=== PATIENT | male | born 1970 | race American Indian/Alaskan Native ===

== ENCOUNTER 2020-08-13 08:26 | Emergency (ER) | payer MEDICAID, OTHER ==
--- NOTE | 2020-08-13 08:38 | Event Note ---
ED Screening Note ED Screening Note: SEVERE LBP P DOING YARD WORK NO B/B SYMPTOMS AMBULATORY; BUT IN PAIN ON EXAM POS TENDERNESS OVER SPINE This initial assessment/diagnostic orders/clinical plan/treatment(s) is/are subject to change based on patients health status, clinical progression and re- assessment by fellow clinical providers in the ED. Further treatment and workup at subsequent clinical providers discretion. Patient/guardian urged not to elope from the ED as their condition may be serious if not clinically assessed and managed. Initial orders include: XR
[2020-08-13 08:40] VITALS: BP 127/69
--- NOTE | 2020-08-13 09:27 | XRay Report ---
Lumbar spine radiograph, 3 views. HISTORY: Lumbar spine pain with tenderness on palpation. COMPARISON: None FINDINGS: Minimal right convex curvature, centered at L4-L5. Posterior vertebral body alignment is pr eserved. Disc spaces are preserved with small anterior marginal osteophytes at L4-L5. Mild/moderate l ower lumbar facet arthropathy. No evidence of fracture. Multiple metallic densities project throughou t the abdomen and pelvis. IMPRESSION: Mild lumbar spondylosis. No acute process. Signer Name: Cyrus Ohara MD Signed: 08/13/2020 9:22 AM Workstation Name: [id number]
--- NOTE | 2020-08-13 09:28 | Emergency Department Report ---
ED Back Pain/Injury HPI - General Chief Complaint: Back Pain/Injury Stated Complaint: BACK PAIN Time Seen by Provider: 08/13/20 08:37 Source: patient Limitations: No Limitations - History of Present Illness Initial Comments: Patient is a 49-year-old male that comes to the emergency room today after injuring his back while cutting tree limbs yesterday. He states that he thought that he freed a branch from a main limb of a tree. He pulled on that limb and realized that it was not detached and he strained his back at that time. Today he woke up and his low back was hurting worse. Patient denies any urinary symptoms. He denies any numbness/saddle anesthesia. He is urinating and stooling without difficulty. He is ambulatory to the ER. Movement makes the pain worse. Immobilization makes it better. Patient reports not taking any medications prior to arrival. He has not seen his primary care doctor. The pain is a constant aching of his lumbar area. MD Complaint: back pain -: Sudden, days(s) Similar Symptoms Previously: No Place: home Severity: moderate Consistency: constant Improves With: immobilization Worsens With: movement Context: while lifting, turning/twisting Associated Symptoms: denies other symptoms - Related Data Previous Rx's Medication Instructions Recorded Last Taken Type Cyclobenzaprine [Flexeril] 10 mg PO TID PRN #10 tablet 08/13/20 Unknown Rx Ibuprofen [Motrin] 800 mg PO Q8HR PRN #30 tablet 08/13/20 Unknown Rx predniSONE [Deltasone] 20 mg PO DAILY #5 tablet 08/13/20 Unknown Rx Allergies Allergy/AdvReac Type Severity Reaction Status Date / Time No Known Allergies Allergy Verified 08/13/20 08:36 ED Review of Systems ROS: Stated complaint: BACK PAIN Other details as noted in HPI Comment: All other systems reviewed and negative ED Past Medical Hx - Past Medical History Previous Medical History?: No - Surgical History Past Surgical History?: Yes Additional Surgical History: RIGHT LUNG - Social History Smoking Status: Never Smoker Substance Use Type: None - Medications Home Medications: Home Medications Medication Instructions Recorded Confirmed Last Taken Type Cyclobenzaprine [Flexeril] 10 mg PO TID PRN #10 tablet 08/13/20 Unknown Rx Ibuprofen [Motrin] 800 mg PO Q8HR PRN #30 tablet 08/13/20 Unknown Rx predniSONE [Deltasone] 20 mg PO DAILY #5 tablet 08/13/20 Unknown Rx ED Physical Exam - General Limitations: No Limitations General appearance: alert, in no apparent distress - Head Head exam: Present: atraumatic, normocephalic - Eye Eye exam: Present: normal appearance - ENT ENT exam: Present: mucous membranes moist - Neck Neck exam: Present: normal inspection - Respiratory Respiratory exam: Present: normal lung sounds bilaterally. Absent: respiratory distress - Cardiovascular Cardiovascular Exam: Present: regular rate, normal rhythm. Absent: systolic murmur, diastolic murmur, rubs, gallop - GI/Abdominal GI/Abdominal exam: Present: soft, normal bowel sounds - Rectal Rectal exam: Present: deferred - Extremities Exam Extremities exam: Present: normal inspection - Back Exam Back exam: Present: normal inspection - Neurological Exam Neurological exam: Present: alert, oriented X3 - Psychiatric Psychiatric exam: Present: normal affect, normal mood - Skin Skin exam: Present: warm, dry, intact, normal color. Absent: rash ED Course Vital Signs 08/13/20 08:39 Temperature 97.7 F Pulse Rate 61 Respiratory 20 Rate Blood Pressure 127/69 O2 Sat by Pulse 98 Oximetry ED Medical Decision Making - Radiology Data Radiology results: report reviewed, image reviewed - Medical Decision Making X-ray negative. Patient is ambulatory with no signs or symptoms of cauda equina Medicated in ER with some relief. Patient being discharged home with medications and Follow-up. He verbalizes understanding of discharge plan of care. Vital Signs 08/13/20 08:39 Temperature 97.7 F Pulse Rate 61 Respiratory 20 Rate Blood Pressure 127/69 O2 Sat by Pulse 98 Oximetry - Differential Diagnosis Rule out herniation of disc versus muscular skeletal strain Critical care attestation.: If time is entered above; I have spent that time in minutes in the direct care of this critically ill patient, excluding procedure time. ED Disposition Clinical Impression: Back pain, Lumbar strain Disposition: DC-01 TO HOME OR SELFCARE Is pt being admited?: No Does the pt Need Aspirin: No Condition: Stable Instructions: Acute Back Pain, Adult Additional Instructions: WARM BATHS MEDS ORDERED TODAY FOLLOW UP WITH MD NEXT WEEK REFERRAL BELOW Prescriptions: predniSONE [Deltasone] 20 mg PO DAILY #5 tablet Cyclobenzaprine [Flexeril] 10 mg PO TID PRN #10 tablet PRN Reason: Muscle Spasm Ibuprofen [Motrin] 800 mg PO Q8HR PRN #30 tablet PRN Reason: Pain, Moderate (4-6) Referrals: RACHANA DAS MD [Staff Physician] - 3-5 Days Forms: Work/School Release Form(ED) Time of Disposition: 09:31
[2020-08-13] MEDS ORDERED: KETOROLAC 60 MG/2 ML INJ IM ONE (09:30)
[2020-08-13] MEDS ORDERED: predniSONE 20 MG TAB PO ONE (09:30)
== END 2020-08-13 10:56 | disposition home or self-care (01) ==
LOC: ED 08:26
DX: S39.012A Strain of muscle, fascia and tendon of lower back, initial encounter (principal); M54.9 Dorsalgia, unspecified; Z79.899 Other long term (current) drug therapy; Z98.890 Other specified postprocedural states; W45.8XXA Other foreign body or object entering through skin, initial encounter; Y93.89 Activity, other specified; Y92.009 Unspecified place in unspecified non-institutional (private) residence as the place of occurrence of the external cause; Y99.8 Other external cause status
CPT/HCPCS: 72100; 96372; 99283; J1885; J7512

== ENCOUNTER 2021-03-24 02:43 | Emergency (ER) | payer OTHER ==
[2021-03-24 02:50] VITALS: BP 105/64
[2021-03-24] MEDS ORDERED: predniSONE 20 MG TAB PO ONE (03:17)
[2021-03-24] MEDS ORDERED: ONDANSETRON 4 MG ODT TAB PO ONE (03:17)
[2021-03-24] MEDS ORDERED: IBUPROFEN 600 MG TAB PO ONE (03:17)
[2021-03-24] MEDS ORDERED: diazePAM 5 MG TAB PO ONE (03:17)
--- NOTE | 2021-03-24 04:04 | XRay Report ---
Lumbar spine radiograph, 2 views. HISTORY: Lumbar spine pain. COMPARISON: 08/13/2020 FINDINGS: Alignment is normal. Mild multilevel disc space height loss, greatest at L4-L5. Mild/modera te lower lumbar facet arthropathy. No evidence of fracture. Multiple metallic densities project throu ghout the abdomen and pelvis. IMPRESSION: Mild multilevel lumbar spondylosis. No acute process. Signer Name: Cyrus Ohara MD Signed: 03/24/2021 4:00 AM Workstation Name: [id number]
--- NOTE | 2021-03-24 05:10 | Emergency Department Report ---
ED Back Pain/Injury HPI - General Chief Complaint: Back Pain/Injury Stated Complaint: BACK PAIN Source: patient Limitations: No Limitations - History of Present Illness Initial Comments: Patient is a 50-year-old -[place] male with a history of chronic low back pain who presents to the ED with acute exacerbation of his chronic low back pain after heavy lifting at work about 2 hours ago. 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 Patient denies any radiating pain to his lower extremities. Patient denies fall, numbness and tingling or weakness of lower extremities bilaterally, urinary or bowel incontinence, chest pain, shortness of breath, hematuria, testicular pain, dizziness, abdominal pain, neck pain or headache or lightheadedness. MD Complaint: back pain (Low back pain s/p heavy lifting) -: Sudden, hour(s) (2) Similar Symptoms Previously: Yes (Chronic low back pain history) Place: work Radiation: none Severity: severe Severity scale (0 -10): 8 Quality: sharp, aching Consistency: constant Improves With: none Worsens With: movement, walking Context: while lifting, turning/twisting Associated Symptoms: denies other symptoms. denies: confusion, weakness, chest pain, numbness, difficulty walking, cough, difficulty urinating, diaphoresis, incontinence, fever/chills, headaches, abdominal pain, loss of appetite, malaise, nausea/vomiting, rash, seizure, shortness of breath - Related Data Previous Rx's Medication Instructions Recorded Last Taken Type Cyclobenzaprine [Flexeril] 10 mg PO TID PRN #10 tablet 08/13/20 Unknown Rx Ibuprofen [Motrin] 800 mg PO Q8HR PRN #30 tablet 08/13/20 Unknown Rx predniSONE [Deltasone] 20 mg PO DAILY #5 tablet 08/13/20 Unknown Rx Baclofen 20 mg PO Q12H PRN #24 tablet 03/24/21 Unknown Rx Ibuprofen [Motrin] 800 mg PO Q8HR PRN #30 tablet 03/24/21 Unknown Rx traMADoL [Ultram] 50 mg PO Q6HR PRN #12 tablet 03/24/21 Unknown Rx Allergies Allergy/AdvReac Type Severity Reaction Status Date / Time No Known Allergies Allergy Verified 08/13/20 08:36 ED Review of Systems ROS: Stated complaint: BACK PAIN Other details as noted in HPI Constitutional: denies: chills, fever Eyes: denies: eye pain, eye discharge, vision change ENT: denies: ear pain, throat pain Respiratory: denies: cough, shortness of breath, wheezing Cardiovascular: denies: chest pain, palpitations Endocrine: no symptoms reported Gastrointestinal: denies: abdominal pain, nausea, vomiting, diarrhea Genitourinary: denies: urgency, dysuria Musculoskeletal: back pain (Low back pain). denies: joint swelling, arthralgia Skin: denies: rash, lesions Neurological: denies: headache, weakness, paresthesias Psychiatric: denies: anxiety, depression Hematological/Lymphatic: denies: easy bleeding, easy bruising ED Past Medical Hx - Past Medical History Previous Medical History?: No Additional medical history: Chronic low back pain - Surgical History Past Surgical History?: Yes Additional Surgical History: RIGHT LUNG - Social History Smoking Status: Never Smoker Substance Use Type: None - Medications Home Medications: Home Medications Medication Instructions Recorded Confirmed Last Taken Type Cyclobenzaprine [Flexeril] 10 mg PO TID PRN #10 tablet 08/13/20 Unknown Rx Ibuprofen [Motrin] 800 mg PO Q8HR PRN #30 tablet 08/13/20 Unknown Rx predniSONE [Deltasone] 20 mg PO DAILY #5 tablet 08/13/20 Unknown Rx Baclofen 20 mg PO Q12H PRN #24 tablet 03/24/21 Unknown Rx Ibuprofen [Motrin] 800 mg PO Q8HR PRN #30 tablet 03/24/21 Unknown Rx traMADoL [Ultram] 50 mg PO Q6HR PRN #12 tablet 03/24/21 Unknown Rx ED Physical Exam - General Limitations: No Limitations General appearance: alert, in no apparent distress - Head Head exam: Present: atraumatic, normocephalic, normal inspection - Eye Eye exam: Present: normal appearance, PERRL, EOMI Pupils: Present: normal accommodation - ENT ENT exam: Present: normal exam, normal orophraynx, mucous membranes moist, TM's normal bilaterally, normal external ear exam - Neck Neck exam: Present: normal inspection, full ROM - Respiratory Respiratory exam: Present: normal lung sounds bilaterally. Absent: respiratory distress, wheezes, rales, rhonchi, chest wall tenderness, accessory muscle use, decreased breath sounds, prolonged expiratory - Cardiovascular Cardiovascular Exam: Present: regular rate, normal rhythm, normal heart sounds. Absent: systolic murmur, diastolic murmur, rubs, gallop - GI/Abdominal GI/Abdominal exam: Present: soft, normal bowel sounds. Absent: distended, tenderness, guarding, rebound, hyperactive bowel sounds, hypoactive bowel sounds , mass - Extremities Exam Extremities exam: Present: normal inspection, full ROM, normal capillary refill. Absent: tenderness - Back Exam Back exam: Present: normal inspection, full ROM, tenderness (Palpable lumbosacral paraspinal musculoskeletal tenderness), muscle spasm, paraspinal tenderness. Absent: CVA tenderness (R), CVA tenderness (L), vertebral tenderness - Neurological Exam Neurological exam: Present: alert, oriented X3, CN II-XII intact, normal gait, reflexes normal - Psychiatric Psychiatric exam: Present: normal affect, normal mood - Skin Skin exam: Present: warm, dry, intact, normal color. Absent: rash ED Course Vital Signs 03/24/21 02:46 Temperature 98.0 F Pulse Rate 79 Respiratory 18 Rate Blood Pressure 105/64 O2 Sat by Pulse 97 Oximetry ED Medical Decision Making - Radiology Data [facility] [address] [place] [address] XRay Report Signed Patient: LOLA DAMON MR#: [id number] : 1970 Acct:[id number] Age/Sex: 50 / M ADM Date: 03/24/21 Loc: ED Attending Dr: Ordering Physician: ALDO BALDERAS Date of Service: 03/24/21 Procedure(s): XR spine lumbosacral 2-3V Accession Number(s): [id number] cc: ALDO BALDERAS Fluoro Time In Minutes: Lumbar spine radiograph, 2 views. HISTORY: Lumbar spine pain. COMPARISON: 08/13/2020 FINDINGS: Alignment is normal. Mild multilevel disc space height loss, greatest at L4-L5. Mild/moderate lower lumbar facet arthropathy. No evidence of fracture. Multiple metallic densities project throughout the abdomen and pelvis. IMPRESSION: Mild multilevel lumbar spondylosis. No acute process. Signer Name: Yun Johnston MD Signed: 03/24/2021 4:00 AM Workstation Name: [id number] Transcribed By: JS Dictated By: YUN JOHNSTON MD Electronically Authenticated By: YUN JOHNSTON MD Signed Date/Time: 03/24/21399 DD/ 7 TD/TT: - Medical Decision Making This is a 50-year-old -[place] male with a history of chronic low back pain who presents to the ED with acute exacerbation of his chronic low back pain after heavy lifting at work about 2 hours ago. 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 Patient denies any radiating pain to his lower extremities. In the ED, patient is alert and oriented x3 and is not in any distress. Patient was treated for pain in the ED and L-spine x-ray showed no acute fractures or subluxations but Mild multilevel lumbar spondylosis. On reevaluation, patient's pain is well controlled medication. Patient will discharge home on pain medications and muscle relaxants and advised to follow-up with his primary care physician in 7 to 10 days for reevaluation or return to the ED immediately if symptoms get worse. - Differential Diagnosis Muscle spasm; muscle strain; back injury; Critical care attestation.: If time is entered above; I have spent that time in minutes in the direct care of this critically ill patient, excluding procedure time. ED Disposition Clinical Impression: Spasm of muscle of lower back, Acute bilateral low back pain without sciatica, Strain of muscle, fascia and tendon of lower back, initial encounter Disposition: HOME / SELF CARE / HOMELESS Is pt being admited?: No Does the pt Need Aspirin: No Condition: Stable Instructions: Muscle Cramps and Spasms, [id number], Muscle Strain, [id number], Low Back Sprain or Strain Rehab-SportsMed Additional Instructions: The L-spine x-ray showed no acute fractures or subluxations. Your symptoms are due to muscle spasm or muscle strain of your back following heavy lifting at work. Therefore take medications with food, drink plenty of fluids and follow-up with your primary care physician in 7 to 10 days for reevaluation. Return to the ED immediately if symptoms get worse. Prescriptions: Baclofen 20 mg PO Q12H PRN #24 tablet PRN Reason: Muscle Spasm Ibuprofen [Motrin] 800 mg PO Q8HR PRN #30 tablet PRN Reason: Pain , Severe (7-10) traMADoL [Ultram] 50 mg PO Q6HR PRN #12 tablet PRN Reason: Pain Referrals: [facility] [Provider Group] - 7-10 days Forms: Work/School Release Form(ED) Time of Disposition: 05:11 Print Language: TELUGU
== END 2021-03-24 05:49 | disposition home or self-care (01) ==
LOC: ED 02:43
DX: S39.012A Strain of muscle, fascia and tendon of lower back, initial encounter (principal); M62.830 Muscle spasm of back; Z98.890 Other specified postprocedural states; X50.0XXA Overexertion from strenuous movement or load, initial encounter; Y93.89 Activity, other specified; Y92.89 Other specified places as the place of occurrence of the external cause; Y99.8 Other external cause status
CPT/HCPCS: 72100; 99283; J7512; J3490; Q0162